=== PATIENT | female | born 1930 | race Caucasian/White ===

== ENCOUNTER 2017-11-20 10:47 | Inpatient (IN) | payer OTHER ==
[~2017-11-20] VITALS: Ht 160 cm; Wt 72.6 kg
--- NOTE | ~2017-11-20 | EKG ---
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 : 1930 Requested By: Kris Morales Order Number: [id number] MD: Raymond Malone Measurements Intervals [place] Rate: 82 P: 47 MT: 171 QRS: -2 QRSD: 94 T: 126 QT: 393 QTc: 459 Interpretive Statements Sinus rhythm Nonspecific ST and T wave abnormality Compared to ECG 02/23/2015 07:47:40 ST and T wave abnormality is now present Electronically Signed On 11-20-2017 16:01:45 CDT by Raymond Malone [email or web address] <ELECTRONICALLY SIGNED> By: Raymond Malone MD, [facility] 11/20/17 1601 1219 1219 Raymond Malone MD, [facility] /EPI
[~2017-11-20 10:47] MED LIST: ACETAMINOPHEN650 M5 PO; ACID CONTROL20 MG PO; ADULT LOW DOSE81 MG PO; ADVAIR HFA115 MCG/21 INH; ALLOPURINOL 10100 M1 PO; ALLOPURINOL 30300 M2 PO; ARTIFICIAL TEA1 EACH OPHTHALMIC; ATROVENT30 ML NASAL; AUGMENTIN 500-1 EACH PO; AZITHROMYCIN 2250 MG PO; BENADRYL ALLE12.5 M1 PO; BYSTOLIC 5 MG5 M1 PO; BYSTOLIC 5 MG5 MG PO; CALTRATE PLUS1 EACH PO; CEFTIN500 MG PO; CLARITIN10 MG PO; COLACE100 MG PO; DIFLUCAN50 MG PO; ENABLEX15 MG PO; ENOXAPARIN40 MG/0.1 SUBQ; EVISTA PO; FAMOTIDINE PO; FISH OIL 1,001000 M2 PO; FLUCONAZOLE50 MG PO; FOSAMAX 70 MG T70 M1 PO; GABAPENTIN 100100 MG PO; HYDROCHLOROTH12.5 M1 PO; INCRUSE ELLI62.5 MCG IH; IPRATROPIU0.2 MG/1 M INH; LEVALBUTER1.25 MG/0. INH; LISINOPRIL20 MG PO; LORATIDINE 10 M10 M1 PO; MAGOX 400400 MG PO; MELATONIN3 MG PO; METAMUCIL PAC1 UDPKT PO; MICARDIS 80 MG80 MG PO; MICARDIS40 MG OR; MOBIC7.5 MG PO; MUCINEX TA600 MG/TA2 PO; MULTIVITAMINS PO; NEURONTIN 300300 M1 PO; NEURONTIN 400400 M1 PO; NEURONTIN600 MG PO; NOLVADEX20 MG PO; NORVASC5 MG PO; NYSTATIN 1100000 U/M SW&SWALLOW; OMEGA-31000 M1 PO; OMEGA-31000 MG PO; PERCOCET 10-321 EACH PO; PREDNISONE 10 M10 MG PO; PREDNISONE 20 M20 M1 PO; PROAIR HFA8.5 GM INH; PROTONIX40 M1 PO; SEREVENT DISKU50 MCG IH; SIMETHICON CHEW80 M1 PO; SYMBICORT; SYMBICORT160 MCG/4.; SYMBICORT160 MCG/4. INH; SYMBICORT80 MCG/4.1 INH; TESSALON PERLE100 MG PO; TRAMADOL 50 MG50 MG PO; TYLENOL325 MG PO; VITAMIN C500 M1 PO; VITAMIN D1000 UNI1 PO; VITAMINC500 PO; XARELTO10 MG PO; XOPENEX 0.63 MG/3 M1 INH; XOPENEX 0.63 MG/3 ML INH; ZIAC 2.5-6.251 EACH PO; ZIAC 5-6.25 MG1 EACH PO; ZOLOFT25 MG PO
[2017-11-20 10:56] VITALS: BP 139/86
[2017-11-20 11:28] LABS: BASOPHILS 0.2 % (0.0-2.0); EOSINOPHILS 1.7 % (0.0-3.0); HEMATOCRIT 36.1 % (37.0-47.0); LYMPHOCYTES 14.4 % (24.0-44.0); MCH 30.1 pg (26.0-34.0); MCHC 33.2 g/dL (28.0-37.0); MCV 90.9 fL (80.0-100.0); MONOCYTES 7.9 % (1.0-8.0); PLATELET COUNT 192 thou/uL (150-400); POLYS 75.8 % (36.0-66.0); RBC 3.97 mil/uL (4.20-5.00); RDW 15.6 % (10.5-14.5); WBC 9.2 thou/uL (4.0-11.0)
[2017-11-20 11:42] LABS: ANION GAP 9 mmol/L (7-16); BUN 27 mg/dL (7-18); CALCIUM 9.8 mg/dL (8.5-10.1); CHLORIDE 102 mmol/L (98-107); CO2 28 mmol/L (21-32); CREATININE 1.1 mg/dL (0.6-1.0); GLUCOSE 132 mg/dL (74-106); POTASSIUM 3.9 mmol/L (3.5-5.1); SODIUM 139 mmol/L (136-145)
[2017-11-20 11:51] LABS: ALBUMIN 3.7 g/dL (3.4-5.0); SGOT 23 U/L (15-37); SGPT 22 U/L (30-65); TOTAL BILIRUBIN 0.4 mg/dL (<0.1-1.0); TOTAL PROTEIN 6.9 g/dL (6.4-8.2); TROPONIN-I < 0.04 ng/mL (<0.06)
[2017-11-20 16:04] VITALS: BP 130/80
[2017-11-20 18:02] VITALS: BP 105/38
[2017-11-20 19:13] VITALS: BP 124/49
[2017-11-20] MEDS ORDERED: NEURONTIN 300300 M1 PO (22:27)
[2017-11-20] MEDS ORDERED: NEURONTIN600 MG PO (22:28)
[2017-11-20] MEDS ORDERED: INCRUSE ELLI62.5 MCG INH (22:31)
[2017-11-20 23:05] VITALS: BP 121/41
[2017-11-21 03:25] VITALS: BP 141/82
[2017-11-21 08:00] VITALS: BP 159/74
[2017-11-21 11:46] VITALS: BP 100/40
[2017-11-21 16:29] VITALS: BP 139/50
[2017-11-21 20:56] VITALS: BP 121/42
[2017-11-22 03:25] VITALS: BP 122/37
[2017-11-22 08:09] VITALS: BP 130/68
[2017-11-22] MEDS ORDERED: LEVAQUIN 500 M500 M2 PO (08:58)
[2017-11-22] MEDS ORDERED: PREDNISONE 5 MG5 M1 PO (08:59)
[2017-11-22 09:51] VITALS: BP 130/68
[2017-11-22 10:00] VITALS: BP 130/68
== END 2017-11-22 11:00 | disposition home health service (06) | DRG 193 ==
LOC: ER 10:47 → EROBS 12:15 → 3W 12:15 → ENTRNSPT 11-22 10:43 → EDTRNSPTSTS 11-22 10:49 → 3W 11-22 11:00
PROVIDERS: Emergency Medicine
DX: J18.9 Pneumonia, unspecified organism (principal); J96.01 Acute respiratory failure with hypoxia; J44.1 Chronic obstructive pulmonary disease with (acute) exacerbation; J44.0 Chronic obstructive pulmonary disease with (acute) lower respiratory infection; M10.9 Gout, unspecified; I10 Essential (primary) hypertension; G62.9 Polyneuropathy, unspecified; F32.9 Major depressive disorder, single episode, unspecified; M62.84 Sarcopenia; E83.42 Hypomagnesemia; Z66 Do not resuscitate; J20.9 Acute bronchitis, unspecified; Z90.49 Acquired absence of other specified parts of digestive tract; Z85.038 Personal history of other malignant neoplasm of large intestine; Z90.710 Acquired absence of both cervix and uterus; Z98.42 Cataract extraction status, left eye; Z98.41 Cataract extraction status, right eye; Z87.442 Personal history of urinary calculi; Z87.891 Personal history of nicotine dependence; Z79.899 Other long term (current) drug therapy; Z85.3 Personal history of malignant neoplasm of breast; Z82.49 Family history of ischemic heart disease and other diseases of the circulatory system; Z81.8 Family history of other mental and behavioral disorders; Z85.118 Personal history of other malignant neoplasm of bronchus and lung
CPT/HCPCS: 10779

== ENCOUNTER → 2018-08-15 | Outpatient (CLI) | payer OTHER ==
[~2018-08-15] MED LIST changes: +INCRUSE ELLI62.5 MCG INH; +LEVAQUIN 500 M500 M2 PO; +PREDNISONE 5 MG5 M1 PO
== END ==
LOC: RAD 12:09
DX: J44.9 Chronic obstructive pulmonary disease, unspecified (principal); J98.4 Other disorders of lung; I51.7 Cardiomegaly; M19.011 Primary osteoarthritis, right shoulder; M19.012 Primary osteoarthritis, left shoulder; M47.815 Spondylosis without myelopathy or radiculopathy, thoracolumbar region; M41.85 Other forms of scoliosis, thoracolumbar region